=== PATIENT | female | born 1990 | race Caucasian/White ===

== ENCOUNTER 2016-05-02 20:14 | Emergency (ER) | payer OTHER ==
--- NOTE | ~2016-05-02 | CT71 ---
[facility] A Service of [facility] RADIOLOGY TEXT RESULTS PATIENT: DAWNA SPAULDING LOCATION: SED : 88 UNIT #: [id number] AGE: [address]: Dmitriy Stephens MD SEX: F ORDER DR: [id number] [address] [address] [id number] E MR#: [id number] Acc #: [id number] NAME: DAWNA SPAULDING. : 1990 SEX: F STUDY DATE/TIME: 05/02/2016 20:49 UNIT: SED ROOM: STUDY DESCRIPTION: CT Head Wo Contrast Attending Physician: Dmitriy Stephens M.D. Ordering Physician: Dmitriy Stephens M.D. Primary Care Physician: Venkat Carmichael M.D. MEDICAL IMAGING REPORT This report is preliminary unless electronic signature is present. EXAM Head CT without contrast 05/02/2016 HISTORY Posterior head pain for 2 days and hypertension. TECHNIQUE Axial noncontrast images were obtained from the skull base to the vertex. This CT exam was performed with one or more of the following radiation dose reduction techniques: automatic exposure control, adjustment of mA and/or kV according to patient size, and iterative reconstruction. FINDINGS Ventricular size and configuration are normal. There is no evidence of acute infarct or hemorrhage. There are no extraaxial fluid collections. No mass lesion or mass effect is seen. There are no skull fractures. IMPRESSION Normal noncontrast head CT. Dictated by... Gianni Brennan M.D. THIS IS AN ELECTRONICALLY VERIFIED REPORT Gianni Brennan M.D. at 05/03/2016 10:56 AM ARMIDA/marky TD: 05/03/2016 04:28 JOB #: [id number] [facility] A Service of [facility] RADIOLOGY TEXT RESULTS PATIENT: DAWNA SPAULDING LOCATION: SED : 89 UNIT #: [id number] AGE: [address]: Dmitriy Stephens MD SEX: F ORDER DR: MEDICAL IMAGING REPORT
[~2016-05-02 20:14] MED LIST: DEPO-PROVE150 MG/1 M; NO MEDICATIONS; SEROQUEL PO; TRINTELLIX PO
== END 2016-05-02 22:07 | disposition home or self-care (01) ==
LOC: SED 20:14
DX: G43.909 Migraine, unspecified, not intractable, without status migrainosus (principal)
CPT/HCPCS: 70450; 84703; 96374; 96375; 99284; J1200; J1885; J2405; J2765

== ENCOUNTER 2016-10-09 20:48 | Emergency (ER) | payer OTHER ==
--- NOTE | ~2016-10-09 | EKG ---
PATIENT: DAWNA SPAULDING UNIT #: [id number] Ventricular Rate: 65 BPM Atrial Rate: 65 BPM P-R Interval: 174 ms QRS Duration: 96 ms Q-T Interval: 430 ms QTC Calculation(Bezet): 447 ms P [place]: 34 degrees Calculated R [place]: 56 degrees Calculated T [place]: 50 degrees Diagnosis Line: Normal sinus rhythm Diagnosis Line: Normal ECG Diagnosis Line: No previous ECGs available Diagnosis Line: Confirmed by PAWAN LUNA MD ([id number]) on 10/10/2016 Diagnosis Line: 11:56:37 PM INTERPRETING MD: CHERYL HANNA
--- NOTE | ~2016-10-09 | CT2 ---
[facility] A Service of [facility] [place] RADIOLOGY TEXT RESULTS PATIENT: DAWNA SPAULDING LOCATION: [facility] : [birth year] UNIT #: [id number] AGE: [address]: Mak Ortiz DO SEX: F ORDER DR: [id number] [facility] [address] [place], [place] [address] [id number] E MR#: [id number] Acc #: [id number] NAME: DAWNA SPAULDING. : 1990 SEX: F STUDY DATE/TIME: 10/09/2016 23:53 UNIT: [facility] ROOM: STUDY DESCRIPTION: CT Abd and Pelv W Cont Attending Physician: Mak Ortiz D.O. Ordering Physician: Mak Ortiz D.O. Primary Care Physician: Venkat Carmichael M.D. MEDICAL IMAGING REPORT This report is preliminary unless electronic signature is present EXAM CT abdomen and pelvis with contrast, 10/09/2016. HISTORY 26-year-old female in the ED complaining of epigastric pain, nausea, and vomiting beginning earlier today. TECHNIQUE CT examination of the abdomen and pelvis was performed with IV contrast. GI contrast material was not ordered or could not be consumed. This CT exam was performed with one or more of the following radiation dose reduction techniques: automatic exposure control, adjustment of mA and/or kV according to patient size, and iterative reconstruction. FINDINGS ABDOMEN FINDINGS: Liver, pancreas, spleen, and kidneys are normal in size and appearance. Nondistended gallbladder. No bile duct dilatation. Small bowel and colon are normal in caliber and appearance, as imaged. The appendix is normal. Normal-caliber abdominal aorta. Nondistended stomach. PELVIS FINDINGS: Uterus, ovaries, urinary bladder, and rectum are within normal limits. No inguinal hernia. Limited lung base images show no active disease in the lower chest. IMPRESSION Negative CT examination of the abdomen and pelvis. Dictated by... [facility] A Service [facility] RADIOLOGY TEXT RESULTS PATIENT: DAWNA SPAULDING LOCATION: [facility] : [birth year] UNIT #: [id number] AGE: [address]: Mak Ortiz DO SEX: F ORDER DR: Dante Sheehan M.D. THIS IS AN ELECTRONICALLY VERIFIED REPORT Dante Sheehan M.D. at 10/10/2016 10:00 PM RGW/matilda TD: 10/10/2016 12:17 JOB #: [id number] MEDICAL IMAGING REPORT Page 1 of 1 COPY
[2016-10-09 22:17] LABS: BASOPHIL# 0.1 X10e3 (0-0.3); BASOPHIL% 0.5 % (0-2.5); EOSINOPHIL# 0.4 X10e3 (0-0.7); EOSINOPHIL% 2.9 % (0.0-7.0); HEMATOCRIT 42.3 % (35.0-45.0); HEMOGLOBIN 14.2 gm/dL (12.0-16.0); LYMPHOCYTE# 3.2 X10e3 (1.0-3.5); LYMPHOCYTE% 25.3 % (17.0-45.0); MEAN CORPUSCULAR HEMOGLOBIN 30.8 PG (28-34); MEAN CORPUSCULAR HGB CONC 33.5 g/dL (30-36); MEAN PLATELET VOLUME 8.5 FL (6.5-11.5); MONOCYTE# 0.8 X10e3 (0-1.0); MONOCYTE% 6.6 % (3.0-12.0); NEUTROPHIL# 8.1 X10e3 (1.5-7.1); NEUTROPHIL% 64.7 % (40-75); PLATELET COUNT 384 X10e3 (140-420); RED CELL DISTRIBUTION WIDTH 13.2 % (11.0-15.5); WHITE BLOOD COUNT 12.6 X10e3 (4.0-10.5)
[2016-10-09 22:26] LABS: DIFF IND NO
[2016-10-09 22:39] LABS: ALBUMIN SERUM 4.5 g/dL (3.5-5.0); ALKALINE PHOSPHATASE 61 U/L (32-92); ALT (SGPT) 13 U/L (10-40); AST (SGOT) 17 U/L (10-42); BILIRUBIN, DIRECT <0.1 mg/dL (0.0-0.2); BILIRUBIN,TOTAL <0.1 mg/dL (0.2-2.0); BLOOD UREA NITROGEN 12 mg/dL (9-23); BUN/CREATININE RATIO 17.14; CALCIUM SERUM 9.2 mg/dL (8.4-10.2); CARBON DIOXIDE 26 mmol/L (22-31); CHLORIDE 103 mmol/L (100-111); CREATININE SERUM 0.7 mg/dL (0.6-1.4); GLOM FILT RATE Estimated 118.7 mL/min (>60); GLUCOSE FASTING 94 mg/dL (70-110); LIPASE 25 U/L (22-51); POTASSIUM 3.6 mmol/L (3.5-5.1); SODIUM 138 mmol/L (135-145)
[2016-10-09 23:14] LABS: POC - CKMB <1.0 ng/mL (0.0-7.9); POC - TROPONIN <0.05 ng/mL (<=0.05)
[2016-10-10 00:17] LABS: URINE SOURCE CLEAN CATCH
[2016-10-10 00:26] LABS: URINE APPEARANCE CLOUDY; URINE BILIRUBIN NEG (NEG); URINE BLOOD TRACE (NEG); URINE COLOR YELLOW; URINE GLUCOSE NEG (NEG); URINE KETONE NEG (NEG); URINE LEUKOCYTE ESTERASE TRACE (NEG); URINE NITRATE NEG (NEG); URINE PH 5.5 (5-8); URINE PROTEIN NEG (NEG); URINE SPECIFIC GRAVITY 1.024 (1.003-1.035); URINE UROBILINOGEN 0.2 MG/DL (NEG)
[2016-10-10 00:30] LABS: CULTURE INDICATED? YES; URINE BACTERIA AUWI NEG (NEGATIVE); URINE SQUAMOUS EPITHELIAL CELL OCC /[HPF]
[2016-10-10 01:34] LABS: POC - CKMB <1.0 ng/mL (0.0-7.9); POC - TROPONIN <0.05 ng/mL (<=0.05)
== END 2016-10-10 02:30 | disposition home or self-care (01) ==
LOC: CED 20:48
PROVIDERS: Emergency Medicine
DX: R10.9 Unspecified abdominal pain (principal); R11.0 Nausea; Z90.89 Acquired absence of other organs
CPT/HCPCS: 36415; 74177; 80048; 80076; 81003; 82553; 83690; 84484; 84703; 85025; 85379; 87086; 93005; 96372; 96374; 96375; 99285; J0500; J2405; Q9967